=== PATIENT | female | born 1990 | race Caucasian/White ===

== ENCOUNTER → 2018-05-18 | Outpatient (CLI) | payer OTHER ==
[2018-05-19 01:33] LABS: T3 TOTAL 103 ng/dL (87-178)
== END ==
LOC: LAB 11:25
PROVIDERS: Family Medicine
DX: O90.5 Postpartum thyroiditis (principal)

== ENCOUNTER → 2018-07-31 | Outpatient (CLI) | payer OTHER | LOC: LAB 13:52 | PROVIDERS: Family Medicine | DX: L65.9 Nonscarring hair loss, unspecified (principal); L85.3 Xerosis cutis ==

== ENCOUNTER → 2018-10-23 | Outpatient (CLI) | payer OTHER | LOC: LAB 13:39 | PROVIDERS: Family Medicine | DX: R05 Cough (principal); R09.81 Nasal congestion ==

== ENCOUNTER 2019-05-16 02:15 | Emergency (ER) | payer OTHER ==
[2019-05-16] MEDS ORDERED: METHYLPHENIDATE 10MG PO (02:22)
[2019-05-16] MEDS ORDERED: NUVARING VAGIN1 EACH VG (02:22)
[2019-05-16 05:06] LABS: EOS # 0.1 (0.04-0.40); EOS % 0.6 % (1.0-5.0); HEMATOCRIT 41.7 % (37.0-47.0); HEMOGLOBIN 14.1 g/dL (12.5-16.0); LYMPH# 1.8 (1.50-4.00); MEAN CELL VOLUME 85 fl (78-100); MEAN CORPUSCULAR HEMOGLOBIN 29 pg (27-31); MEAN CORPUSCULAR HGB CONC 34 g/dL (33-37); MEAN PLATELET VOLUME 11.3 fl (7.4-10.4); MONO # 0.5 (0.20-0.80); NEU # 8.7 (1.40-6.50); PLATELET COUNT 181 K/mm3 (130-400); RED BLOOD COUNT 4.89 M/mm3 (4.10-5.30); RED CELL DISTRIBUTION WIDTH 13.6 % (11.5-14.5); WHITE BLOOD COUNT 11.1 K/mm3 (4.8-10.8)
[2019-05-16 05:12] LABS: POTASSIUM 4.1 mmol/L (3.5-5.1)
[2019-05-16 05:13] LABS: CALCIUM 8.9 mg/dL (8.3-10.5)
[2019-05-16 05:14] LABS: TOTAL PROTEIN 7.6 g/dL (6.4-8.3)
[2019-05-16 05:16] LABS: TOTAL BILIRUBIN 0.3 mg/dL (0.2-1.2)
[2019-05-16 06:35] LABS: URINE APPEARANCE HAZY; URINE BILIRUBIN NEGATIVE (NEGATIVE); URINE BLOOD NEGATIVE (NEGATIVE); URINE COLOR YELLOW; URINE GLUCOSE NEGATIVE (NEGATIVE); URINE KETONE 1+ (NEGATIVE); URINE LEUKOCYTE ESTERASE NEGATIVE (NEGATIVE); URINE MUCUS PRESENT (NOT PRESENT); URINE NITRATE NEGATIVE (NEGATIVE); URINE PROTEIN(semi-quant) NEGATIVE (NEGATIVE); URINE UROBILINOGEN NORMAL (NORMAL)
[2019-05-16] MEDS ORDERED: ONDANSETRON ODT8 MG PO (09:05)
[2019-05-16 09:20] VITALS: BP 106/54
== END 2019-05-16 09:20 | disposition home or self-care (01) ==
LOC: ED 02:15
PROVIDERS: Nurse Practitioner
DX: G43.909 Migraine, unspecified, not intractable, without status migrainosus (principal); F12.10 Cannabis abuse, uncomplicated; Z90.89 Acquired absence of other organs; Z98.890 Other specified postprocedural states; Z88.2 Allergy status to sulfonamides
CPT/HCPCS: J1200; J1885; J2060; J2405; J2550; J7030

== ENCOUNTER → 2019-10-31 | Outpatient (CLI) | payer OTHER ==
[~2019-10-31] VITALS: Ht 167.6 cm; Wt 64.1 kg
[~2019-10-31] MED LIST: METHYLPHENIDATE 10MG PO; NUVARING VAGIN1 EACH VG; ONDANSETRON ODT8 MG PO
[2019-10-31 19:17] VITALS: BP 105/69
[2019-10-31 20:28] VITALS: BP 117/64
== END ==
LOC: AMSURD 19:07
DX: E87.0 Hyperosmolality and hypernatremia (principal)
CPT/HCPCS: J7030

== ENCOUNTER → 2020-03-24 | Outpatient (CLI) | payer OTHER ==
[2019-10-31 20:28] VITALS: BP 117/64
[2020-03-25 05:06] LABS: PROGESTERONE 4.5 ng/mL (())
[2020-03-25 05:20] LABS: FOLATE (FOLIC ACID) 5.8 ng/mL (>=4.0)
== END ==
LOC: LAB 14:14
PROVIDERS: Family Medicine
DX: N97.0 Female infertility associated with anovulation (principal); L65.9 Nonscarring hair loss, unspecified; R53.83 Other fatigue

== ENCOUNTER → 2020-09-21 | Outpatient (CLI) | payer OTHER ==
[2019-10-31 20:28] VITALS: BP 117/64
== END ==
LOC: LAB 07:50
DX: R05 Cough (principal); M79.10 Myalgia, unspecified site; R51.9 Headache, unspecified; R09.81 Nasal congestion; R09.89 Other specified symptoms and signs involving the circulatory and respiratory systems; Z20.828 Contact with and (suspected) exposure to other viral communicable diseases

== ENCOUNTER → 2020-09-28 | Outpatient (CLI) | payer OTHER ==
[2019-10-31 20:28] VITALS: BP 117/64
== END ==
LOC: LAB 10:18
DX: U07.1 COVID-19 (principal)

== ENCOUNTER → 2020-12-04 | Outpatient (CLI) | payer OTHER ==
[2019-10-31 20:28] VITALS: BP 117/64
== END ==
LOC: RAD 10:07
DX: M79.606 Pain in leg, unspecified (principal); R79.1 Abnormal coagulation profile
CPT/HCPCS: Q9967

== ENCOUNTER → 2021-06-09 | Outpatient (CLI) | payer OTHER | LOC: LAB 17:11 | DX: Z02.1 Encounter for pre-employment examination (principal) ==

== ENCOUNTER → 2021-09-08 | Outpatient (CLI) | payer OTHER ==
[2021-09-08 16:17] LABS: BASO # 0.03 K/mm3 (0.02-0.10); EOS # 0.14 K/mm3 (0.04-0.40); HEMATOCRIT 41.2 % (37.0-47.0); HEMOGLOBIN 13.2 g/dL (12.5-16.0); LYMPH# 2.06 K/mm3 (1.50-4.00); MEAN CELL VOLUME 82 fl (78-100); MEAN CORPUSCULAR HEMOGLOBIN 26 pg (27-31); MEAN CORPUSCULAR HGB CONC 32 g/dL (33-37); MEAN PLATELET VOLUME 9.9 fl (7.4-10.4); MONO # 0.32 K/mm3 (0.20-0.80); NEU # 2.16 K/mm3 (1.40-6.50); PLATELET COUNT 237 K/mm3 (130-400); RED BLOOD COUNT 5.03 M/mm3 (4.10-5.30); RED CELL DISTRIBUTION WIDTH 14.8 % (11.5-14.5); WHITE BLOOD COUNT 4.7 K/mm3 (4.8-10.8)
[2021-09-08 16:24] LABS: ALBUMIN 4.2 g/dL (3.5-5.0)
[2021-09-08 16:25] LABS: POTASSIUM 4.2 mmol/L (3.5-5.1)
[2021-09-08 16:26] LABS: CALCIUM 9.3 mg/dL (8.3-10.5)
[2021-09-08 16:27] LABS: TOTAL PROTEIN 7.3 g/dL (6.4-8.3)
[2021-09-08 16:29] LABS: TOTAL BILIRUBIN 0.5 mg/dL (0.2-1.2)
== END ==
LOC: LAB 15:56
PROVIDERS: Family Medicine
DX: Z00.00 Encounter for general adult medical examination without abnormal findings (principal); E55.9 Vitamin D deficiency, unspecified; E03.9 Hypothyroidism, unspecified

== ENCOUNTER → 2021-09-10 | Outpatient (CLI) | payer OTHER ==
[2021-09-11 00:30] LABS: HEPATITIS B SURFACE ANTIGEN Negative (Negative)
[2021-09-11 17:12] LABS: TB GOLD INTERPRETATION.TB GOLD Negative (Negative)
[2021-09-14 22:58] LABS: RUBEOLA (MEASLES) IGG INTERP Positive (Negative)
== END ==
LOC: LAB 14:12
PROVIDERS: Family Medicine
DX: Z02.1 Encounter for pre-employment examination (principal)

== ENCOUNTER → 2021-09-14 | Outpatient (CLI) | payer OTHER | LOC: RAD 12:16 → LAB 12:16 | DX: F90.9 Attention-deficit hyperactivity disorder, unspecified type (principal); R06.00 Dyspnea, unspecified; Z98.82 Breast implant status | CPT/HCPCS: Q9967 ==

== ENCOUNTER → 2022-03-14 | Outpatient (CLI) | payer SELFPAY ==
[2022-03-14 12:48] LABS: HEMATOCRIT 38.2 % (37.0-47.0); HEMOGLOBIN 12.2 g/dL (12.5-16.0); MEAN PLATELET VOLUME 9.3 fl (7.4-10.4); RED BLOOD COUNT 4.61 M/mm3 (4.10-5.30); WHITE BLOOD COUNT 4.9 K/mm3 (4.8-10.8)
[2022-03-14 13:32] LABS: ALBUMIN 4.1 g/dL (3.5-5.0); CALCIUM 9.3 mg/dL (8.3-10.5); POTASSIUM 3.5 mmol/L (3.5-5.1); TOTAL BILIRUBIN 0.4 mg/dL (0.2-1.2); TOTAL PROTEIN 6.8 g/dL (6.4-8.3)
== END ==
LOC: LAB 12:07
PROVIDERS: Family Medicine
DX: O03.4 Incomplete spontaneous abortion without complication (principal)

== ENCOUNTER 2022-03-30 00:02 | Emergency (ER) | payer SELFPAY ==
[2022-03-30] MEDS ORDERED: RITALIN 20 MG PO (00:11)
[2022-03-30] MEDS ORDERED: XANAX 1MG1 MG PO (00:12)
[2022-03-30 00:50] LABS: BASO # 0.03 K/mm3 (0.02-0.10); EOS # 0.12 K/mm3 (0.04-0.40); EOS % 2.1 % (1.0-5.0); HEMOGLOBIN 11.6 g/dL (12.5-16.0); LYMPH# 2.05 K/mm3 (1.50-4.00); MEAN CELL VOLUME 80 fl (78-100); MEAN CORPUSCULAR HEMOGLOBIN 26 pg (27-31); MEAN CORPUSCULAR HGB CONC 32 g/dL (33-37); MEAN PLATELET VOLUME 9.5 fl (7.4-10.4); MONO # 0.39 K/mm3 (0.20-0.80); NEU # 3.09 K/mm3 (1.40-6.50); PLATELET COUNT 283 K/mm3 (130-400); WHITE BLOOD COUNT 5.7 K/mm3 (4.8-10.8)
[2022-03-30 00:55] LABS: ALBUMIN 4.1 g/dL (3.5-5.0)
[2022-03-30 00:56] LABS: POTASSIUM 3.7 mmol/L (3.5-5.1)
[2022-03-30 00:57] LABS: CALCIUM 9.5 mg/dL (8.3-10.5)
[2022-03-30 00:58] LABS: TOTAL PROTEIN 6.9 g/dL (6.4-8.3)
[2022-03-30 01:00] LABS: TOTAL BILIRUBIN 0.4 mg/dL (0.2-1.2)
[2022-03-30 01:42] VITALS: BP 120/72
== END 2022-03-30 01:44 | disposition home or self-care (01) ==
LOC: ED 00:02
PROVIDERS: Physician Assistant
DX: E86.0 Dehydration (principal); Z20.822 Contact with and (suspected) exposure to COVID-19; Z28.310 Unvaccinated for COVID-19
CPT/HCPCS: J1885; J7030

== ENCOUNTER 2022-03-31 20:26 | Emergency (ER) | payer SELFPAY ==
[~2022-03-31] VITALS: Ht 167.6 cm; Wt 50.0 kg
[~2022-03-31 20:26] MED LIST changes: +RITALIN 20 MG PO; +XANAX 1MG1 MG PO
[2022-03-31 21:33] LABS: BASO # 0.03 K/mm3 (0.02-0.10); EOS # 0.26 K/mm3 (0.04-0.40); EOS % 4.8 % (1.0-5.0); HEMATOCRIT 34.2 % (37.0-47.0); LYMPH# 1.69 K/mm3 (1.50-4.00); MEAN CELL VOLUME 80 fl (78-100); MEAN CORPUSCULAR HEMOGLOBIN 26 pg (27-31); MEAN CORPUSCULAR HGB CONC 32 g/dL (33-37); MEAN PLATELET VOLUME 9.9 fl (7.4-10.4); MONO # 0.45 K/mm3 (0.20-0.80); NEU # 2.99 K/mm3 (1.40-6.50); PLATELET COUNT 277 K/mm3 (130-400); RED BLOOD COUNT 4.28 M/mm3 (4.10-5.30); RED CELL DISTRIBUTION WIDTH 13.2 % (11.5-14.5); WHITE BLOOD COUNT 5.4 K/mm3 (4.8-10.8)
[2022-03-31 21:44] LABS: POTASSIUM 3.3 mmol/L (3.5-5.1); SODIUM 140 mmol/L (136-145)
[2022-03-31 21:45] LABS: CALCIUM 9.3 mg/dL (8.3-10.5)
[2022-03-31 21:46] LABS: GLUCOSE 108 mg/dL (65-105); TOTAL PROTEIN 6.6 g/dL (6.4-8.3)
[2022-03-31 21:47] LABS: CARBON DIOXIDE 19 mmol/L (22-29)
[2022-03-31 21:48] LABS: TOTAL BILIRUBIN 0.2 mg/dL (0.2-1.2)
[2022-03-31 21:52] LABS: AST-SGOT 15 U/L (5-34)
[2022-03-31 21:53] LABS: ALT/SGPT 13 U/L (0-55)
[2022-03-31 22:00] LABS: PH-URINE 6.5 (5.0 - 8.0); URINE APPEARANCE CLEAR; URINE BILIRUBIN NEGATIVE (NEGATIVE); URINE BLOOD NEGATIVE (NEGATIVE); URINE COLOR YELLOW; URINE GLUCOSE NEGATIVE (NEGATIVE); URINE KETONE NEGATIVE (NEGATIVE); URINE LEUKOCYTE ESTERASE TRACE (NEGATIVE); URINE NITRATE NEGATIVE (NEGATIVE); URINE PROTEIN(semi-quant) NEGATIVE (NEGATIVE); URINE UROBILINOGEN NORMAL (NORMAL); URINE WBC 0-1 /hpf (0-3)
[2022-03-31 23:19] VITALS: BP 125/80
== END 2022-03-31 23:19 | disposition home or self-care (01) ==
LOC: ED 20:26
PROVIDERS: Family Medicine
DX: R07.89 Other chest pain (principal); R00.0 Tachycardia, unspecified; Z28.310 Unvaccinated for COVID-19
CPT/HCPCS: J7030; Q9967

== ENCOUNTER → 2022-04-26 | Outpatient (CLI) | payer SELFPAY | LOC: LAB 16:12 | DX: Z02.1 Encounter for pre-employment examination (principal) ==

== ENCOUNTER 2022-08-16 21:04 | Emergency (ER) | payer SELFPAY ==
[~2022-08-16] VITALS: Ht 167.6 cm; Wt 52.3 kg
[2022-08-16] MEDS ORDERED: ADDERALL 30 MG30 MG PO (21:21)
[2022-08-16] MEDS ORDERED: WELLBUTRIN SR150 M3 PO (21:22)
[2022-08-16] MEDS ORDERED: WELLBUTRIN XL300 M1 PO (21:22)
[2022-08-16 22:05] LABS: ALBUMIN 3.7 g/dL (3.5-5.0); POTASSIUM 4.5 mmol/L (3.5-5.1)
[2022-08-16 22:06] LABS: CALCIUM 10.2 mg/dL (8.3-10.5)
[2022-08-16 22:07] LABS: TOTAL PROTEIN 7.2 g/dL (6.4-8.3)
[2022-08-16 22:09] LABS: TOTAL BILIRUBIN 0.2 mg/dL (0.2-1.2)
[2022-08-16] MEDS ORDERED: MORGIDOX 1X100100 MG PO (23:52)
[2022-08-16 23:59] VITALS: BP 106/59
== END 2022-08-16 23:59 | disposition home or self-care (01) ==
LOC: ED 21:04
PROVIDERS: Physician Assistant
DX: J18.9 Pneumonia, unspecified organism (principal); F41.9 Anxiety disorder, unspecified; Z28.310 Unvaccinated for COVID-19; Z79.01 Long term (current) use of anticoagulants; Z88.2 Allergy status to sulfonamides
CPT/HCPCS: Q9967

== ENCOUNTER → 2023-01-28 | Outpatient (CLI) | payer SELFPAY ==
[~2023-01-28] MED LIST changes: +ADDERALL 30 MG30 MG PO; +MORGIDOX 1X100100 MG PO; +WELLBUTRIN SR150 M3 PO; +WELLBUTRIN XL300 M1 PO
[2023-01-28 16:14] LABS: BASO # 0.02 K/mm3 (0.02-0.10); EOS # 0.24 K/mm3 (0.04-0.40); EOS % 3.1 % (1.0-5.0); HEMATOCRIT 29.9 % (37.0-47.0); HEMOGLOBIN 8.7 g/dL (12.5-16.0); LYMPH# 2.19 K/mm3 (1.50-4.00); MEAN CELL VOLUME 71 fl (78-100); MEAN CORPUSCULAR HEMOGLOBIN 21 pg (27-31); MEAN CORPUSCULAR HGB CONC 29 g/dL (33-37); MEAN PLATELET VOLUME 9.4 fl (7.4-10.4); MONO # 0.43 K/mm3 (0.20-0.80); NEU # 4.75 K/mm3 (1.40-6.50); PLATELET COUNT 283 K/mm3 (130-400); RED BLOOD COUNT 4.24 M/mm3 (4.10-5.30); RED CELL DISTRIBUTION WIDTH 16.1 % (11.5-14.5); WHITE BLOOD COUNT 7.6 K/mm3 (4.8-10.8)
[2023-01-28 17:18] LABS: ERYTHROCYTE SEDIMENTATION RATE 20 mm/hr (0-20)
== END ==
LOC: LAB 15:44
PROVIDERS: Family Medicine
DX: L02.91 Cutaneous abscess, unspecified (principal); D64.9 Anemia, unspecified

== ENCOUNTER 2024-08-02 16:26 | Outpatient (RCR) | payer SELFPAY ==
[2024-07-18 13:24] VITALS: BP 110/77
[2024-07-18 14:41] VITALS: BP 119/74
[2024-07-22 11:18] VITALS: BP 121/72
[2024-07-25 13:18] VITALS: BP 129/87
[2024-07-30 13:48] VITALS: BP 113/65
[~2024-08-02] VITALS: Ht 167.6 cm; Wt 65.9 kg
[~2024-08-02 16:26] MED LIST changes: +ADDERALL 20 MG20 MG PO; +Iron Sucrose 200 MG in NS 100 ML Over 15 minutes IV ONE; +SUDAFED 12-HOU120 MG PO; +VITAMIN D350 MCG PO; +XANAX0.5 M1 PO; +[UNRECOGNIZED DRUG - OTHER] IV ONE
[2024-08-02 16:44] VITALS: BP 109/69
[2024-08-02] MEDS ORDERED: Iron Sucrose 200 MG in NS 100 ML Over 15 minutes IV ONE (17:30)
== END 2024-08-08 | disposition home or self-care (01) ==
LOC: AMSURD
DX: E61.1 Iron deficiency (principal)
CPT/HCPCS: J1756